=== PATIENT | male | born 1970 | race Caucasian/White ===

== ENCOUNTER 2021-07-07 10:06 | Emergency (ER) | payer SELFPAY ==
--- NOTE | 2021-07-07 10:23 | HMH.EDUTC ---
[facility] [place] Clinical Impression: Bronchitis Sinusitis Qualifiers: Sinusitis location: frontal Chronicity: acute Recurrence: non-recurrent Qualified Code(s): J01.10 - Acute frontal sinusitis, unspecified Disposition: Home, Self-Care Condition on Discharge: Good Instructions: DI for Sinusitis Additional Instructions: Drink plenty of fluids. Take tylenol or ibuprofen for pain or fever. Take the medications as directed. Follow up with your regular doctor. GO TO THE ER FOR ANY WORSENING SYMPTOMS Don't start the oral steroids (prednisone) until tomorrow, since you had the shot here today. Prescriptions: predniSONE [Deltasone 10mg tablet] 10 mg PO DAILY 9 Days #21 tab Transmission Status: Received by [facility] # Cefdinir [Omnicef 300mg Capsule] 300 mg PO BID #20 cap Transmission Status: Received by [facility] #[id number] Referrals: Provider,Referral, MD [Primary Care Provider] - Time of Disposition: 10:40 Medical Decision Making - Medical Records Medical records reviewed: No: I reviewed the patient's medical records. - Arun Inquiry Pt receiving controlled substance: No Vital Signs: 07/07/21 10:29 07/07/21 10:41 Temperature 98.8 F 98.8 F Temperature Source Oral Pulse Rate 115 H Pulse Rate [Left Radial] 115 H Respiratory Rate 19 19 Blood Pressure 140/95 H Blood Pressure [Right Arm] 140/95 H Blood Pressure Mean [Right Arm] 110 02 Sat by Pulse Oximetry 97 - Lab Data Lab results reviewed: Yes: I reviewed the patient's lab results. Orders (Tests/Meds): ED MEDICATIONS Discontinued Medications Generic Name Dose Route Start Last Admin Trade Name Freq PRN Reason Stop Dose Admin Dexamethasone Sodium Phosphate 8 mg 07/07/21 10:30 07/07/21 10:39 Dexamethasone 4mg/Ml 1ml Vial IM 07/07/21 10:31 8 mg ONCE ONE Administration [facility] [place] - General Stated complaint: sore throat, cough and congestion Time Seen by Provider: 07/07/21 10:30 - History of Present Illness Provider Complaint: He c/o sore throat, chills, body aches and feeling bad for the past 3 days. - Related Data Previous Rx's Medication Instructions Recorded Cefdinir [Omnicef 300mg Capsule] 300 mg PO BID #20 cap 07/07/21 predniSONE [Deltasone 10mg tablet] 10 mg PO DAILY 9 Days #21 tab 07/07/21 Allergies Allergy/AdvReac Type Severity Reaction Status Date / Time No Known Allergies Allergy Verified 07/07/21 10:31 [facility] [place] History - Hepatitis A Screen Attestation statement:: This patient has been screened for Hepatitis A risk factors. I have reviewed the patient's past medical history: Yes ROS Obtained: Yes All systems reviewed & no additional complaints - Constitutional Constitutional: Reports as per HPI - Eyes Eyes: Denies eye discharge - ENT Ears, Nose, Mouth, and Throat: Reports as per HPI - Cardiovascular Cardiovascular: Denies chest pain - Respiratory Respiratory: Reports chest congestion, Reports cough, Denies dyspnea, Denies stridor, Denies wheezing Physical Exam - General General appearance: alert, in no apparent distress - Head Head exam: atraumatic, normocephalic, normal inspection - Eye Eye exam: Present: normal appearance, PERRL, EOMI - ENT ENT exam: Present: normal exam, normal oropharynx, mucous membranes moist, TM's normal bilaterally, normal external ear exam - Neck Neck exam: Present: normal inspection, full ROM, trachea midline. Absent: meningismus, lymphadenopathy - Chest Chest inspection: Present: normal inspection, symmetric chest wall rise. Absent: tenderness - Respiratory Respiratory exam: Present: normal lung sounds bilaterally. Absent: respiratory distress - Cardiovascular Cardiovascular exam: Present: regular rate, normal rhythm. Absent: JVD - Abdominal Exam Abdominal exam: Present: soft, normal bowel sounds. Absent: distention, tenderness, guarding - Extremities Exam Extremities e
[2021-07-07 10:29] VITALS: BP 140/95; PULSE 115; RESP 19; TEMP 37.1; O2SAT 97; BMI 31.7
[2021-07-07 10:41] VITALS: BP 140/95; PULSE 115; RESP 19; TEMP 37.1
== END 2021-07-07 10:48 | disposition home or self-care (01) ==
PROVIDERS: Emergency Provider Nurse Practitioner Family
DX: J01.10 Acute frontal sinusitis, unspecified (principal); J20.9 Acute bronchitis, unspecified
CPT/HCPCS: 96372; 99212; G0463